=== PATIENT | female | born 1960 | race Caucasian/White ===

== ENCOUNTER 2023-07-06 07:30 | Observation (INO) ==
[~2023-07-06 07:30] MED LIST: Buffered Lidocaine 1% SYRIN 1 ml INTRADERM ONE; Famotidine IV 10 MG/ML 2 ml VIAL (20 mg) IV ONE; Lactated Ringers 1000 ml BAG 1,000 ML IV SCH
[2023-07-06] MEDS ORDERED: Famotidine IV 10 MG/ML 2 ml VIAL (20 mg) ONE (08:22)
[2023-07-06] MEDS ORDERED: Buffered Lidocaine 1% SYRIN 1 ml ONE (08:22)
[2023-07-06] MEDS ORDERED: Chlorhexidine MOUTHWASH 0.12% 15 ML UDC ONE (08:22)
[2023-07-06] MEDS ORDERED: ceFAZolin 2 GM in NS PREMIX 0 GM/0 ML BAG IVPB ONE (08:22)
[2023-07-06] MEDS ORDERED: Rocuronium 50 mg VIAL 10 mg/ml 5 ml VIAL (50 mg) ONE (08:35)
[2023-07-06] MEDS ORDERED: fentaNYL 100 mcg/2 ml 50 MCG/ML VIAL ONE (08:36)
[2023-07-06] MEDS ORDERED: Propofol 10 MG/ML 20 ML BTL ONE (08:36)
[2023-07-06] MEDS ORDERED: Lidocaine 2% PF 5 ML VIAL ONE (08:36)
[2023-07-06] MEDS ORDERED: Midazolam 2 mg/2 ml VIAL 1 mg/ml 2 ml VIAL (2 mg) ONE (08:36)
[2023-07-06] MEDS ORDERED: Thrombin 5,000 UNITS 1 APPLIC KIT - topical use - TOPICAL ONE (08:45)
[2023-07-06] MEDS ORDERED: Lidocaine 1% w EPI 1:100,000 MDV 20 ML VIAL ONE (08:45)
[2023-07-06] MEDS ORDERED: Gelfoam Sponge SIZE 100 SPONGE ONE (08:46)
[2023-07-06] MEDS ORDERED: ceFAZolin VIAL VIAL ONE (08:46)
[2023-07-06] MEDS ORDERED: ceFAZolin 2 GM in NS PREMIX 2 GM/100 ML BAG IVPB ONE (08:57)
[2023-07-06 09:13] LABS: Rapid COVID-19 Molecular Undetected (Undetected)
[2023-07-06] MEDS ORDERED: Benzocaine/Menthol LOZ MT PRN ×2 (10:50→12:26)
[2023-07-06] MEDS ORDERED: Senna TAB 8.6 mg TAB PO PRN ×2 (10:50→12:26)
[2023-07-06] MEDS ORDERED: Dextran 70/Hypromellose Tears Eye Drops 15 ml BTL (for Artificials Tears) BOTH EYES PRN ×2 (10:50→12:26)
[2023-07-06] MEDS ORDERED: Phenol 1.4% Throat Spray BTL MT PRN ×2 (10:50→12:26)
[2023-07-06] MEDS ORDERED: Ondansetron 4 mg VIAL 2 MG/ML 2 ml VIAL IV PRN (10:50)
[2023-07-06] MEDS ORDERED: Morphine 2 MG/ML SYRINGE IV PRN ×2 (10:50→12:26)
[2023-07-06] MEDS ORDERED: Calcium Carb (TUMS) 500 mg CHEW TAB PO PRN ×2 (10:50→12:26)
[2023-07-06] MEDS ORDERED: Nitrofurantoin (monohydrate/macrocrystals) 100 mg CAP PO PRN ×2 (10:53→12:26)
[2023-07-06] MEDS ORDERED: Fluticasone NASAL SPRAY 50MCG 16 gm SPRAY BTL INTRANASAL PRN ×2 (10:53→12:26)
[2023-07-06] MEDS ORDERED: HYDROmorphone 1 MG/1 ML SYRINGE IV PRN ×2 (10:59→12:26)
[2023-07-06] MEDS ORDERED: fentaNYL 100 mcg/2 ml 50 MCG/ML VIAL IV PRN ×2 (10:59→12:26)
[2023-07-06] MEDS ORDERED: Naloxone 0.4 mg VIAL 0.4 mg/ml 1 ml VIAL IV PRN ×2 (10:59→12:26)
[2023-07-06] MEDS ORDERED: Lactated Ringers 1000 ml BAG 1,000 ML IV SCH ×2 (11:00→13:00)
[2023-07-06] MEDS: Ondansetron 4 mg VIAL 2 MG/ML 2 ml VIAL IV PRN ×2 (13:43→20:33)
[2023-07-06] MEDS ORDERED: PHENYLEPHRINE HCL 10 MG PO SCH ×2 (14:00)
[2023-07-07] MEDS ORDERED: Scopolamine 1 mg/72hr PATCH TRANSDERM SCH (09:00)
[2023-07-07 09:41] VITALS: BP 130/80
== END 2023-07-07 12:25 | disposition home or self-care (01) ==
LOC: SSU 07:30 → OR 07:30
PROVIDERS: ADMIT Neurological Surgery; ATTEND Neurological Surgery